=== PATIENT | female | born 1935 | race Caucasian/White ===

== ENCOUNTER 2019-04-08 09:25 | Day surgery (SDC) | payer MEDICARE ==
[2019-04-05 14:13] VITALS: BMI 26.5
[~2019-04-08 09:25] MED LIST: LACTATED RINGERS 1,000 ML IV SCH; LIDOCAINE 1% 20 ML VIAL (10MG/ML) FOR IV START INTRADERMA PRN
[2019-04-08 10:00] VITALS: TEMP 98.1
[2019-04-08] MEDS ORDERED: LIDOCAINE 1% INJ 10MG/ML (20 ML MDV) ONE (10:04)
[2019-04-08] MEDS ORDERED: PROPOFOL 10 MG/ML 20 ML VIAL IV ONE (10:04)
[2019-04-08] MEDS ORDERED: SODIUM CHLORIDE 0.9% 500 ML 500 ML IV ONE (11:14)
--- NOTE | 2019-04-08 11:14 | P.PCN ---
Date of Procedure: 04/08/19 Description of Procedure: BRIEF HISTORY: Patient is a 83-year-old pleasant female scheduled for an elective colonoscopy as a part of change in bowel habits and fecal incontinence. The patient reports she continues to 1 soft formed nonbloody bowel movement daily who presented with reports of passage of some soft stool per rectum. Previous history of anal fissures as well as past surgical history including for C-sections. Denied any blood per rectum, loose watery stool incontinence or history of chronic constipation. Remote history of colonoscopy. No unintentional weight loss. She was started on FiberCon for which she is taking 2 daily with good improvement in her symptoms. PROCEDURE PERFORMED: Colonoscopy with polypectomy. PREOPERATIVE DIAGNOSIS: Change in bowel habits, fecal incontinence. ESTIMATED BLOOD LOSS: Minimal. IV sedation per Anesthesia. PROCEDURE: After informed consent was obtained, the patient, was brought into the endoscopy unit. IV sedation was administered by Anesthesia under continuous monitoring. Digital rectal examination was normal. Initially the Olympus CF-190 flexible video colonoscope was then inserted in the rectum, gradually advanced into the cecum without any difficulty. Careful examination was performed as the scope was gradually being withdrawn. Ileocecal valve and the appendiceal orifice were visualized and appeared normal. Prep was excellent. Mucosa of the cecum, ascending colon, transverse colon, descending colon, sigmoid colon, and rectum appeared normal. 2 diminutive polyps measuring 2 mm removed from the ascending and descending colon with cold forcep polypectomy. Mild internal hemorrhoids Retroflexion was performed in the rectum and no lesions were seen. The patient tolerated the procedure well. IMPRESSION: Normal-appearing colon from rectum to cecum. 2 diminutive polyps removed with cold forcep from ascending and descending colon. Mild internal hemorrhoids. RECOMMENDATIONS: Findings of this examination were discussed with the patient and her daughter. Continue FiberCon therapy. Follow up with gastroenterology as previously scheduled.
[2019-04-08 11:43] VITALS: BP 122/58; PULSE 55; RESP 16
== END 2019-04-08 12:05 | disposition home or self-care (01) ==
LOC: ORWHC2ENDO 09:25
PROVIDERS: ATTEND Internal Medicine
DX: D12.2 Benign neoplasm of ascending colon (principal); D12.4 Benign neoplasm of descending colon; K64.8 Other hemorrhoids; Z88.1 Allergy status to other antibiotic agents; Z88.5 Allergy status to narcotic agent; I10 Essential (primary) hypertension; E78.5 Hyperlipidemia, unspecified; Z87.891 Personal history of nicotine dependence; K21.9 Gastro-esophageal reflux disease without esophagitis; Z79.899 Other long term (current) drug therapy
CPT/HCPCS: 88305; 45380; J2001; J2704

== ENCOUNTER → 2019-10-07 | Outpatient (CLI) | payer MEDICARE ==
--- NOTE | 2019-10-07 15:08 | BD ---
EXAMINATION TYPE: Axial Bone Density DATE OF EXAM: 10/07/2019 COMPARISON: NONE CLINICAL HISTORY: 84 YR OLD FEMALE...ICD-10 CODE: Z78.0 POST MENOPAUSAL Height: 61 Weight: 150 FRAX RISK QUESTIONS: Glucocorticoids (More than 3mos): ON AND OFF FOR YRS (Ex: prednisone, prednisolone, methylprednisolone, dexamethasone, and hydrocortisone). RISK FACTORS HISTORY OF: ONLY A VERY YOUNG PERSON Postmenopausal woman: HYST AT AGE 47 YRS OLD Take estrogen and/or progesterone medications: SHORT TIME IN THE PAST, NONE NOW Lost more than 2 inches in height since high school: YES Hyperparathyroidism: NO Adrenal Insufficiency: NO MEDICATIONS: Prednisone or other steroids: ON AND OFF FOR BRONCHITIS, AND BACK PAIN, FOR MANY YRS Additional Medications: BP MEDS, REFLUX MEDS, STATIN FOR CHOLESTEROL, ONE A DAY CALCIUM AND VIT D Additional History: HYPERTENSION, CHOLESTEROL, REFLUX, ARTHRITIS EXAM MEASUREMENTS: Bone mineral densitometry was performed using the Fixya System. Bone mineral density as measured about the Lumbar spine is: ----- L1-L4(G/cm2): 1.217 T Score Values are as follows: ----- L1: -1.3 ----- L2: -0.4 ----- L3: 1.9 ----- L4: 0.6 ----- L1-L4: 0.3 Bone mineral density FIRST DEXA STUDY AT [facility] Bone mineral density about the R hip (g/cm2): 0.888 Bone mineral density about the L hip (g/cm2): 0.890 T Score values are as follows: -----R Neck: -0.8 -----L Neck: -1.4 -----R Total: -1.0 -----L Total: -0.9 Bone mineral density FIRST SCAN AT [facility] FRAX%s: THERE IS A 19.2% CHANCE FOR A MAJOR OSTEOPOROTIC FX AND A 5.6% FOR HIP.....PROBABILITY FOR FX IN 10 YRS TIME IMPRESSION: Osteopenia (T Score between -2.5 and -1). There is slightly increased risk of fracture and the patient may be considered for treatment. Re-Screen 2-5 years. NOTE: T-SCORE=SD OF THE YOUNG ADULT MEAN.
== END | disposition home or self-care (01) ==
LOC: RADBDWWP 13:58 → MERGE 14:20
PROVIDERS: ATTEND Internal Medicine
DX: M89.9 Disorder of bone, unspecified (principal)
CPT/HCPCS: 77080

== ENCOUNTER → 2020-08-28 | Outpatient (CLI) | payer MEDICARE | END | disposition home or self-care (01) | LOC: LABWHC1 16:15 | PROVIDERS: ATTEND Internal Medicine | DX: Z20.828 Contact with and (suspected) exposure to other viral communicable diseases (principal) | CPT/HCPCS: 36415; 86769 ==

== ENCOUNTER → 2022-01-22 | Outpatient (CLI) | payer MEDICARE ==
[2022-01-22 18:35] LABS: Albumin 4.4 g/dL (3.8-4.9); Albumin/Globulin Ratio 1.98 (1.60-3.17); BUN/Creat Ratio 17.51 Ratio (12.00-20.00); Blood Urea Nitrogen 15.5 mg/dL (9.0-27.0); Calcium 9.8 mg/dL (8.7-10.3); Carbon Dioxide 27.5 mmol/L (20.0-27.5); Globulin 2.2 g/dL (1.6-3.3); Non-African American GFR(CKD) 58.7 (60.0-200.0); Potassium 4.5 mmol/L (3.5-5.5); Total Bilirubin 0.2 mg/dL (0.30-1.20); Total Protein 6.6 g/dL (6.2-8.2)
[2022-01-22 18:45] LABS: HCT 38.4 % (37.2-46.3); HGB 12.2 g/dL (12.0-15.0); MCH 30.7 pg (27.0-32.0); MCHC 31.8 g/dL (32.0-37.0); MCV 96.7 fL (80.0-97.0); Mean Platelet Volume 9.8 fL (9.5-12.2); NRBC Per 100 WBC 0 /100 WBCS (0.0-0.0); Platelet Count 364 X 10*3/uL (140-440); RBC 3.97 X 10*6/uL (4.10-5.20); RDW 13.1 % (11.5-14.5); WBC 10.06 X 10*3/uL (4.50-10.00)
== END | disposition home or self-care (01) ==
LOC: LABWHC1 10:29
PROVIDERS: ATTEND Internal Medicine
DX: R19.7 Diarrhea, unspecified (principal)
CPT/HCPCS: 36415; 80053; 85027

== ENCOUNTER → 2022-05-29 | Outpatient (CLI) | payer MEDICARE ==
--- NOTE | 2022-05-29 14:15 | US ---
EXAMINATION TYPE: US venous doppler duplex LE DATE OF EXAM: 05/29/2022 1:57 PM COMPARISON: NONE CLINICAL HISTORY: R22.43 SWELLING, MASS AND LUMP. Left ankle swelling SIDE PERFORMED: Bilateral TECHNIQUE: The lower extremity deep venous system is examined utilizing real time linear array sonog melodie with graded compression, doppler sonography and color-flow sonography. VESSELS IMAGED: Common Femoral Vein Deep Femoral Vein Greater Saphenous Vein * Femoral Vein Popliteal Vein Small Saphenous Vein * Proximal Calf Veins (* superficial vessels) Right Leg: Appears negative for DVT Left Leg: Appears negative for DVT IMPRESSION: No evidence for DVT.
== END | disposition home or self-care (01) ==
LOC: RADUSWWP 13:20
PROVIDERS: ATTEND Internal Medicine
DX: R22.43 Localized swelling, mass and lump, lower limb, bilateral (principal)
CPT/HCPCS: 93970

== ENCOUNTER 2023-11-11 16:00 | Emergency (ER) | payer MEDICARE ==
[2023-11-11 16:06] VITALS: BP 186/76; PULSE 104; RESP 18; TEMP 98.4
[2023-11-11] MEDS ORDERED: IPRATROPIUM-ALBUTEROL 3 ML NEB INHALATION STA (16:33)
[2023-11-11] MEDS ORDERED: SODIUM CHLORIDE 0.9% 1,000 ML IV STA (16:33)
[2023-11-11] MEDS ORDERED: SODIUM CHLORIDE 0.9% 500 ML 500 ML IV STA (16:33)
--- NOTE | 2023-11-11 17:21 | ED ---
Recheck HPI - General Chief Complaint: Shortness of Breath Stated Complaint: Oxygen low Time Seen by Provider: 11/11/23 16:14 Source: patient, RN notes reviewed, old records reviewed Mode of arrival: wheelchair Limitations: no limitations - History of Present Illness Initial Comments: This is a 88-year-old female to the ER for evaluation of shortness of breath. Patient is having persistent shortness of breath here in the emergency department. Persistent fever with known diagnosis of flu and pneumonia, oxygen low prior to arrival but improving here in the ER. Patient herself has no complaints on arrival patient wants no treatment and prefers discharge home MD Complaint: other (Low oxygen level in the setting of flow) Symptoms Since Prior Visit: no new symptoms Context: planned re-check Associated Symptoms: none Treatments Prior to Arrival: other (Patient sent to ER for evaluation of low oxygen) - Related Data Home Medications Medication Instructions Recorded Confirmed Omeprazole 20 mg PO DAILY 04/05/19 11/11/23 Simvastatin [Zocor] 20 mg PO DAILY 04/05/19 11/11/23 amLODIPine [Norvasc] 5 mg PO HS 04/05/19 11/11/23 Ascorbic Acid [Vitamin C] 500 mg PO DAILY 11/11/23 11/11/23 Cholecalciferol [Vitamin D3 (25 25 mcg PO DAILY 11/11/23 11/11/23 Mcg = 1000 Iu)] Lisinopril-Hctz 20-12.5 mg 1 tab PO DAILY 11/11/23 11/11/23 [Zestoretic 20-12.5] Oseltamivir [Tamiflu] 75 mg PO DIRECTED 11/11/23 11/11/23 Turmeric Root Extract [Turmeric] 500 mg PO DAILY 11/11/23 11/11/23 amLODIPine [Norvasc] 2.5 mg PO HS 11/11/23 11/11/23 predniSONE [Deltasone] 20 mg PO DIRECTED 11/11/23 11/11/23 Allergies Allergy/AdvReac Type Severity Reaction Status Date / Time codeine Allergy lightheaded Verified 11/11/23 17:39 levofloxacin [From Levaquin] Allergy Rash/Hives Verified 11/11/23 17:39 Review of Systems ROS Statement: Those systems with pertinent positive or pertinent negative responses have been documented in the HPI. ROS Other: All systems not noted in ROS Statement are negative. Past Medical History Past Medical History: GERD/Reflux, Hypertension Additional Past Medical History / Comment(s): fecal incontinence,bulging disc in back History of Any Multi-Drug Resistant Organisms: None Reported Past Surgical History: Bladder Surgery, Section, Cholecystectomy, Hysterectomy Additional Past Surgical History / Comment(s): rectal surgery for fissures and hemorrhoids Past Anesthesia/Blood Transfusion Reactions: No Reported Reaction Past Psychological History: No Psychological Hx Reported Past Alcohol Use History: Occasional Past Drug Use History: None Reported - Past Family History Mother Family Medical History: Cancer Additional Family Medical History / Comment(s): ovarian cancer Father Family Medical History: Cancer Additional Family Medical History / Comment(s): bladder cancer Son(s) Family Medical History: Cancer Additional Family Medical History / Comment(s): brain cancer Brother(s) Family Medical History: Cancer Additional Family Medical History / Comment(s): pancreatic cancer General Exam Limitations: no limitations General appearance: alert, in no apparent distress, anxious Head exam: Present: atraumatic, normocephalic, normal inspection Eye exam: Present: normal appearance, PERRL, EOMI. Absent: scleral icterus, c onjunctival injection, periorbital swelling ENT exam: Present: normal exam, mucous membranes moist Neck exam: Present: normal inspection. Absent: tenderness, meningismus, lymphadenopathy Respiratory exam: Present: normal lung sounds bilaterally. Absent: respiratory distress, wheezes, rales, rhonchi, stridor Cardiovascular Exam: Present: regular rate, normal rhythm, normal heart sounds. Absent: systolic murmur, diastolic murmur, rubs, gallop, clicks GI/Abdominal exam: Present: soft, normal bowel sounds. Absent: distended, tenderness, guarding, rebound, rigid Extremities exam: Present: normal inspection, full ROM, normal capillary refill. Absent: tenderness, pedal edema, joint swelling, calf tenderness Back exam: Present: normal inspection Neurological exam: Present: alert, oriented X3, CN II-XII intact Psychiatric exam: Present: normal affect, normal mood Skin exam: Present: warm, dry, intact, normal color. Absent: rash Course Vital Signs 11/11/23 11/11/23 11/11/23 16:02 17:00 17:03 Temperature 98.4 F Pulse Rate 104 H Respiratory 18 Rate Blood Pressure 186/76 O2 Sat by Pulse 91 L 92 L 91 L Oximetry - Reevaluation(s) Reevaluation #1: Medical records reviewed Reevaluation #2: Patient symptoms improved Reevaluation #3: Patient informed of results and questions answered Reevaluation #4: Was pt. sent in by a medical professional or institution ([facility], [employer], urgent care, hospital, or fci...) When possible be specific @ -no Did you speak to anyone other than the patient for history (EMS, parent, family, police, friend...)? What history was obtained from this source @ -no Did you review nursing and triage notes (agree or disagree)? Why? @ -agree Are old charts reviewed (outside hosp., previous admission, EMS record, old EKG, old radiological studies, urgent care reports/EKG's, fci records)? Report findings @ -yes Differential Diagnosis (chest pain, altered mental status, abdominal pain women, abdominal pain men, vaginal bleeding, weakness, fever, dyspnea, syncope, headache, dizziness, GI bleed, back pain, seizure, CVA, palpatations, mental health, musculoskeletal)? @ -prior EKG interpreted by me (3pts min.). @ -no X-rays interpreted by me (1pt min.). @ -no CT interpreted by me (1pt min.). @ -no U/S interpreted by me (1pt. min.). @ -no What testing was considered but not performed or refused? (CT, X-rays, U/S, labs)? Why? @ -none What meds were considered but not given or refused? Why? @ -none Did you discuss the management of the patient with other professionals (professionals i.e. [facility], [employer], lab, RT, psych nurse, transition social worker, creative writing english professor, teacher, event security officer, top case assembler)? Give summary @ -no Was smoking cessation discussed for >3mins.? @ -no Was critical care preformed (if so, how long)? @ -no Were there social determinants of health that impacted care today? How? (Homelessness, low income, unemployed, alcoholism, drug addiction, transportation, low edu. Level, literacy, decrease access to med. care, penitentiary, rehab)? @ -none Was there de-escalation of care discussed even if they declined (Discuss DNR or withdrawal of care, Hospice)? DNR status @ -no What co-morbidities impacted this encounter? (DM, HTN, Smoking, COPD, CAD, Cancer, CVA, ARF, Chemo, Hep., AIDS, mental health diagnosis, sleep apnea, morbid obesity)? @ -none Was patient admitted / discharged? Hospital course, mention meds given and route, prescriptions, significant lab abnormalities, going to OR and other pertinent info. @ - 88 female to the ER for evaluation of pneumonia and influenza with hypoxia. Patient can be transferred back to facility for further treatment and supplemental oxygen and supportive care Discharge Undiagnosed new problem with uncertain prognosis? @ -no Drug Therapy requiring intensive monitoring for toxicity (Heparin, Nitro, Insulin, Cardizem)? @ -no Were any procedures done? @ -no Diagnosis/symptom? @ -Influenza pneumonia and hypoxia Acute, or Chronic, or Acute on Chronic? @ -Acute Uncomplicated (without systemic symptoms) or Complicated (systemic symptoms)? @ -Complicated Side effects of treatment? @ -no Exacerbation, Progression, or Severe Exacerbation? @ -exacerbation Poses a threat to life or bodily function? How? (Chest pain, [place], [place], pneumonia, PE, COPD, DKA, ARF, appy, cholecystitis, CVA, Diverticulitis, Homicidal, Suicidal, threat to staff... and all critical care pts) @ -yes with extremes of age Reevaluation #5: Differential Dyspnea: Coronary syndrome, arrhythmia, tamponade, asthma, COPD, pulmonary embolism, pneumonia, pneumothorax, pulmonary effusion, anaphylaxis, diabetic ketoacidosis, flailed chest, pulmonary contusion, diaphragmatic rupture, anemia, neuromuscular, this is not meant to be an all-inclusive list. Medical Decision Making - Medical Decision Making 88 female to the ER for evaluation of pneumonia and influenza with hypoxia. Patient can be transferred back to facility for further treatment and supplemental oxygen and supportive care Critical Care Time Critical Care Time: Yes Total Critical Care Time: 31 Disposition Clinical Impression: Influenza, Pneumonia, Hypoxia Disposition: HOME SELF-CARE Condition: Good Instructions (If sedation given, give patient instructions): Influenza (ED) Is patient prescribed a controlled substance at d/c from ED?: No Referrals: Tio Rae MD [Primary Care Provider] - 1-2 days Time of Disposition: 17:20
== END 2023-11-11 17:39 | disposition home or self-care (01) ==
LOC: EC 16:00
DX: J11.1 Influenza due to unidentified influenza virus with other respiratory manifestations (principal); J18.9 Pneumonia, unspecified organism; R09.02 Hypoxemia; K21.9 Gastro-esophageal reflux disease without esophagitis; I10 Essential (primary) hypertension; Z79.899 Other long term (current) drug therapy; Z88.5 Allergy status to narcotic agent; Z88.1 Allergy status to other antibiotic agents
CPT/HCPCS: 99285